=== PATIENT | male | born 1995 | race Caucasian/White ===

== ENCOUNTER → 2024-11-26 | Outpatient (CLI) | payer OTHER ==
--- NOTE | 2024-11-27 07:29 | XR ---
EXAMINATION TYPE: XR wrist and forearm complete RT DATE OF EXAM: 11/26/2024 4:22 PM COMPARISON: None. CLINICAL INDICATION: Male, 28 years old with history of [id number] RT WRIST PAIN, pain TECHNIQUE: XR wrist and forearm complete RT XX views were obtained. FINDINGS: There is no acute fracture/dislocation evident. The joint spaces appear within normal limi ts. The overlying soft tissue appears unremarkable. IMPRESSION: No acute fracture or dislocation seen. EXAMINATION TYPE: XR wrist and forearm complete RT DATE OF EXAM: 11/26/2024 4:22 PM COMPARISON: None. CLINICAL INDICATION: Male, 28 years old with history of [id number] RT WRIST PAIN, pain TECHNIQUE: XR wrist and forearm complete RT XX views were obtained. FINDINGS: There is no acute fracture/dislocation evident. The joint spaces appear within normal limits. The ov erlying soft tissue appears unremarkable. IMPRESSION: No acute fracture or dislocation. [facility], , 11/27/2024 7:27 AM
== END | disposition home or self-care (01) ==
LOC: RADXRYALE 15:55
PROVIDERS: ATTEND Physician Assistant Medical
DX: M25.531 Pain in right wrist (principal)